=== PATIENT | female | born 1975 | race Caucasian/White ===

== ENCOUNTER 2022-11-27 15:49 | Outpatient (CLI) | payer OTHER | END 2022-11-27 15:50 | disposition home or self-care (01) | LOC: CSHMAMMO 15:49 | PROVIDERS: ATTEND Student in an Organized Health Care Education/Training Program | DX: Z12.31 Encounter for screening mammogram for malignant neoplasm of breast (principal); N64.89 Other specified disorders of breast; Z80.3 Family history of malignant neoplasm of breast | CPT/HCPCS: 77063; 77067 ==

== ENCOUNTER 2022-12-20 07:56 | Outpatient (CLI) | payer OTHER | END 2022-12-20 07:57 | disposition home or self-care (01) | LOC: CSHMAMMO 07:56 | PROVIDERS: ATTEND Student in an Organized Health Care Education/Training Program | DX: N64.89 Other specified disorders of breast (principal) | CPT/HCPCS: G0279 ==